=== PATIENT | female | born 1980 ===

== ENCOUNTER 2022-03-29 06:17 | Inpatient (IN) ==
[2022-03-29] MEDS ORDERED: ONDANSETRON 4 MG/2 ML VIAL IV PRN ×2 (06:30→22:52)
[2022-03-29] MEDS ORDERED: OXYTOCIN/LR 20 UNIT/1,000 ML BAG IV SCH (06:30)
[2022-03-29] MEDS ORDERED: METHYLERGONOVINE 0.2 MG/1 ML AMP IM PRN (06:30)
[2022-03-29] MEDS ORDERED: LACTATED RINGERS 250 ML IV ONE (06:30)
[2022-03-29] MEDS ORDERED: CARBOPROST TROMETHAMINE 250 MCG/ML AMP IM PRN (06:30)
[2022-03-29] MEDS ORDERED: LACTATED RINGERS 500 ML IV PRN (06:30)
[2022-03-29] MEDS ORDERED: OXYTOCIN/LR 20 UNIT/1,000 ML BAG IV ONE (06:30)
[2022-03-29] MEDS ORDERED: BUTORPHANOL 1 MG/ML VIAL IV PRN (06:30)
[2022-03-29] MEDS ORDERED: TRANEXAMIC ACID 1,000 MG in SODIUM CHLORIDE 0.9% 100 ML IV PRN (06:30)
[2022-03-29] MEDS ORDERED: BUTORPHANOL 2 MG/ML VIAL IV PRN (06:30)
[2022-03-29] MEDS ORDERED: LACTATED RINGERS 1,000 ML IV SCH (06:30)
[2022-03-29] MEDS ORDERED: miSOPROStoL 200 MCG TABLET RECTAL PRN (06:30)
[2022-03-29 06:57] LABS: Basophils % 0.3 % (0.0-0.8); Eosinophils # 0.1 10*3/uL (0.0-0.87); Eosinophils % 1.8 % (0.00-10.9); Hematocrit 38.6 VOL% (35.7-47.0); Hemoglobin 13.3 GM/DL (12.0-16.0); Immature Granulocytes % 0.5 %; Immature Granulocytes Absolute 0.03 #; Lymphocytes # 1.9 10*3/uL (1.4-4.0); Lymphocytes % 31.4 % (21.3-54.2); Mean Corpuscular HGB Conc 34.5 GM/DL (32-36); Mean Corpuscular Volume 88.7 FL (87-102); Monocytes # 0.4 10*3/uL (0.11-0.8); Monocytes % 6.5 % (1.7-12.7); Neutrophils % 59.5 % (38.7-73.9); Platelet Count 325 T/CUMM (130-400); Red Blood Count 4.35 MC/CUMM (3.8-5.5); Red Cell Distribution Width 13.7 % (9.3-17.3); White Blood Count 6.1 T/CUMM (4-12)
[2022-03-29 07:00] LABS: Mucus,Urine Occasional /LPF (Occasional); RBC,Urine 5 /HPF (0-4); Squamous Epithelial Cell,Urine Few /HPF (0-10)
[2022-03-29 07:01] LABS: Bilirubin,Urine Negative (Negative); Blood, Urine Trace mg/dL (Negative); Glucose,Urine (UA) Negative (Negative); Ketones,Urine Negative (Negative); Nitrite,Urine Negative (Negative); Protein,Urine Negative (Negative); Urine Appearance Slightly Hazy (Clear); Urine Color Yellow (Yellow); Urine Specific Gravity 1.015 (1.001-1.035); Urine Urobilinogen 0.2 eU/dL (<2.0)
[2022-03-29] MEDS ORDERED: MEPERIDINE 50 MG/1 ML VIAL IV PRN (09:19)
[2022-03-29] MEDS ORDERED: miSOPROStoL 200 MCG TABLET ONE (09:44)
[2022-03-29 10:16] LABS: Cord Arterial Blood HCO3 20.7 MMOL/L
[2022-03-29 10:19] LABS: Cord Venous Blood HCO3 22.7 MMOL/L; Cord Venous Blood PCO2 39.5 MMHG; Cord Venous Blood PO2 36.4
[2022-03-29] MEDS: IBUPROFEN 800 MG TABLET PO PRN ×2 (14:17→20:00)
[2022-03-29] MEDS: FAMOTIDINE 20 MG/2 ML VIAL IV SCH (21:51)
[2022-03-29] MEDS ORDERED: MAGNESIUM HYDROXIDE SUSP 30 ML UDCUP PO PRN (22:52)
[2022-03-29] MEDS ORDERED: BISACODYL 10 MG SUPP RECTAL PRN (22:52)
[2022-03-29] MEDS ORDERED: ACETAMINOPHEN 500 MG TABLET PO PRN (22:52)
[2022-03-30 06:04] LABS: Basophils % 0.4 % (0.0-0.8); Eosinophils # 0.2 10*3/uL (0.0-0.87); Eosinophils % 2.3 % (0.00-10.9); Hematocrit 36.9 VOL% (35.7-47.0); Hemoglobin 12.2 GM/DL (12.0-16.0); Immature Granulocytes % 0.7 %; Immature Granulocytes Absolute 0.06 #; Lymphocytes # 2.3 10*3/uL (1.4-4.0); Lymphocytes % 27.8 % (21.3-54.2); Mean Corpuscular HGB Conc 33.1 GM/DL (32-36); Mean Corpuscular Volume 90.9 FL (87-102); Mean Platelet Volume 10.1 FL (9.6-12.0); Monocytes # 0.5 10*3/uL (0.11-0.8); Monocytes % 6.3 % (1.7-12.7); Neutrophils % 62.5 % (38.7-73.9); Platelet Count 264 T/CUMM (130-400); Red Blood Count 4.06 MC/CUMM (3.8-5.5); Red Cell Distribution Width 14.2 % (9.3-17.3); White Blood Count 8.2 T/CUMM (4-12)
[2022-03-30] MEDS: DOCUSATE SODIUM 100 MG CAPSULE PO SCH ×2 (08:36→21:00)
[2022-03-30] MEDS: MULTIVITAMIN (PRENATAL) TABLET PO SCH (08:36)
[2022-03-30] MEDS: IBUPROFEN 800 MG TABLET PO PRN ×2 (08:37→22:06)
[2022-03-30] MEDS: ASPIRIN EC 81 MG TABLET PO SCH (08:37)
[2022-03-30] MEDS ORDERED: ONDANSETRON ODT 4 MG TABLET PO PRN (11:47)
[2022-03-31 07:16] VITALS: BP 134/73
[2022-03-31] MEDS: ASPIRIN EC 81 MG TABLET PO SCH (09:44)
[2022-03-31] MEDS: MULTIVITAMIN (PRENATAL) TABLET PO SCH (09:44)
[2022-03-31] MEDS: DOCUSATE SODIUM 100 MG CAPSULE PO SCH (09:44)
[2022-03-31] MEDS: IBUPROFEN 800 MG TABLET PO PRN (09:46)
[2022-03-31] MEDS ORDERED: DIPH/TET/ACEL PERT BOOSTER VACCINE 0.5 ML VIAL IM ONE (13:00)
== END 2022-03-31 12:50 | disposition home or self-care (01) | DRG 807 ==
LOC: N.LD 06:17 → N.OB 12:31
PROVIDERS: ADMIT Obstetrics & Gynecology; ATTEND Obstetrics & Gynecology